=== PATIENT | male | born 1950 | race Caucasian/White ===

== ENCOUNTER 2017-05-17 12:55 | Outpatient (CLI) | payer MEDICARE, OTHER ==
[2016-07-16 10:09] VITALS: BP 146/77
[2017-05-17 13:15] LABS: EOSINOPHILS % 2.6 % (0.0-6.8); MEAN CORPUSCULAR HEMOGLOBIN 34.9 pg (28.0-34.0); MEAN CORPUSCULAR VOLUME 95.5 fl (80.0-100.0); MONOCYTES % 5.8 % (0.0-11.0)
[2017-05-17 13:34] LABS: eGFR (African) > 60; eGFR (Non-African) > 60
== END 2017-05-17 12:56 ==
LOC: LAB 12:55
PROVIDERS: ATTEND Orthopaedic Surgery
DX: S46.012D Strain of muscle(s) and tendon(s) of the rotator cuff of left shoulder, subsequent encounter (principal); X58.XXXA Exposure to other specified factors, initial encounter; Y93.9 Activity, unspecified; Y99.9 Unspecified external cause status
CPT/HCPCS: 36415; 80053; 85025